=== PATIENT | female | born 2000 | race Caucasian/White ===

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

== ENCOUNTER 2018-07-16 13:51 | Emergency (ER) | payer OTHER ==
[~2018-07-16] VITALS: Ht 165.1 cm; Wt 49.3 kg
[2018-07-16 14:02] VITALS: BP 110/70
--- NOTE | 2018-07-16 14:28 | NUR ---
PT PLACED ON MONITOR, C/O 5/10 CP, EARLIER SHE WAS WALKING TO CLASS AND HAD SUDDEN ONSET OF 10/10 CP. PT HAS HX OF SEIZURE DISORDER AND ASSOCIATED CP WITH SEIZURES, BUT NO SEIZURE TODAY OR WITHIN THE LAST YEAR. VSS. NAD. CALL LIGHT WITHIN REACH. INSTRUCTED TO OBTAIN URINE SAMPLE
[2018-07-16] MEDS ORDERED: KETOROLAC 30 MG/1 ML ONE (15:29)
[2018-07-16] MEDS ORDERED: KETOROLAC 30 MG/1 ML IM ONE (15:30)
== END 2018-07-16 15:41 | disposition home or self-care (01) ==
LOC: ED 15:35
DX: R07.89 Other chest pain (principal); R42 Dizziness and giddiness
CPT/HCPCS: 71046; 93005; 96372; 99283; J1885

== ENCOUNTER 2019-03-15 02:12 | Emergency (ER) | payer OTHER ==
[~2019-03-15] VITALS: Ht 165.1 cm; Wt 52.2 kg
--- NOTE | 2019-03-15 02:24 | NUR ---
BIB [facility], SEIZURE THIS NIGHT, HX SEIZURE DISORDER. BS PER EMS 83. EMS GAVE 5MG IM VERSED. PT HAD ANTOHER SEIZURE IN THE AMBULANCE BAY, EMS GAVE AN ADDITIONAL 5MG IV VERSED. PT WITH ALCOHOL, STATES SHE WAS DRINKING FROM A "HANDLE" AND NOT SURE HOW MANY DRINKS SHE HAD. SEIZURE PRECAUTIONS IN PLACE. PT CONNECTED TO ALL MONITORS.
[2019-03-15 02:46] LABS: BASOPHILS # (AUTO) 0.03 x10^3/uL (0-0.3); BASOPHILS % (AUTO) 1 % (0-1); EOSINOPHILS # (AUTO) 0.27 x10^3/uL (0-0.8); EOSINOPHILS % (AUTO) 5 % (1-7); LYMPHOCYTES % (AUTO) 40 % (22-44); MD NO; MEAN CORPUSCULAR HEMOGLOBIN 29.6 pg (27.0-34.8); MEAN CORPUSCULAR HGB CONC 32.8 g/dL (32.4-35.8); MEAN CORPUSCULAR VOLUME 90.3 fL (80-100); MEAN PLATELET VOLUME 7.8 fL (7.4-10.4); MONOCYTES # (AUTO) 0.29 x10^3/uL (0-1.4); MONOCYTES % (AUTO) 5 % (2-9); NEUTROPHILS # (AUTO) 2.86 x10^3/uL (1.8-8.0); NEUTROPHILS % (AUTO) 50 % (42-75); PLATELET COUNT 226 x10^3/uL (130-400); RED BLOOD COUNT 4.23 x10^6/uL (3.82-5.3)
--- NOTE | 2019-03-15 02:51 | NUR ---
pt abmulatory to bedside cammode for urine sample. friends at bedside. er law in to assess pt
[2019-03-15 02:58] LABS: ALBUMIN 3.8 g/dL (3.4-5.0); ANION GAP 5 mmol/L (5-15); CALCIUM 8.5 mg/dL (8.5-10.1); CHLORIDE 112 mmol/L (98-107)
[2019-03-15 03:04] LABS: ALANINE AMINOTRANSFERASE 21 U/L (12-78); ALKALINE PHOSPHATASE 90 U/L (45-117); BILIRUBIN,TOTAL 0.3 mg/dL (0.2-1.0); CREATININE 1.05 mg/dL (0.55-1.02)
[2019-03-15 03:05] LABS: SALICYLATE LEVEL < 1.7 mg/dL (2.8-20.0)
[2019-03-15] MEDS ORDERED: LORazepam 2 MG/ML, 1ML ONE (03:06)
[2019-03-15 03:12] LABS: AMPHETAMINE SCREEN, URINE Negative (Negative); BARBITURATE SCREEN, URINE Negative (Negative); BENZODIAZEPINE SCREEN, URINE Positive (Negative); CANNABINOID SCREEN, URINE Negative (Negative); COCAINE SCREEN, URINE Negative (Negative); METHADONE SCREEN, URINE Negative (Negative); OPIATE SCREEN, URINE Negative (Negative)
[2019-03-15] MEDS ORDERED: LORazepam 2 MG/ML, 1ML IVPush ONE (03:30)
--- NOTE | 2019-03-15 03:39 | NUR ---
pt experienced a seizure in ed. pt medicated. friends removed from the room and pt seizure activity stopped.
[2019-03-15 04:07] VITALS: BP 121/80
--- NOTE | 2019-03-15 04:07 | NUR ---
pt with no more seizure activity. pt removed all monitoring and took out her iv. pt states she wants to go home. d/c pending ambulation.
--- NOTE | 2019-03-15 04:13 | NUR ---
pt ambulates with a stead gait. pt to be d/c
== END 2019-03-15 04:26 | disposition home or self-care (01) ==
LOC: ED 03:28
DX: G40.909 Epilepsy, unspecified, not intractable, without status epilepticus (principal); J45.909 Unspecified asthma, uncomplicated
CPT/HCPCS: 36415; 80053; 80307; 84703; 85025; 93005; 96374; 99284; J2060